=== PATIENT | female | born 1980 | race Caucasian/White ===

== ENCOUNTER 2016-02-22 05:15 | Emergency (ER) | payer SELFPAY ==
[2016-02-22] MEDS ORDERED: LIDOCAINE 2% VISC 15 ML UDC ONE (05:47)
[2016-02-22] MEDS ORDERED: TRAMADOL 50 MG TAB ONE (05:47)
== END 2016-02-22 05:58 | disposition home or self-care (01) ==
LOC: ER 05:15
DX: K02.9 Dental caries, unspecified (principal)